=== PATIENT | male | born 1990 | race Caucasian/White ===

== ENCOUNTER 2020-02-24 14:39 | Emergency (ER) | payer OTHER ==
[2020-02-24 14:42] VITALS: BP 137/80; PULSE 79; RESP 18; TEMP 98.5
[2020-02-24] MEDS ORDERED: ONDANSETRON 4 MG ODT STARTER PACK 2 TAB BTL PO STA (15:34)
--- NOTE | 2020-02-24 15:35 | ED ---
Abdominal Pain HPI - General Chief Complaint: Abdominal Pain Stated Complaint: Abdominal Pain Source: patient Mode of arrival: ambulatory Limitations: no limitations - History of Present Illness Initial Comments: Patient is a 29-year-old male with no past medical history presents emergency room with reported nausea and vomiting this morning. Patient states that he woke this morning when he had a sharp shooting pain in the left side of his abdomen. Within 10 minutes he had an episode of vomiting. States that he did eat some food that was not prepared at home yesterday. He was concerned that he may have contracted food poisoning. Patient has been able to eat and drink water all day. Denies having any diarrhea, melenic stools or hematochezia. No sick contacts with similar symptoms. No fevers or chills. Patient states that the abd pain was short-lived and has fully resolved. Did not take any medications for his symptoms. States that he was going to go back and work tomorrow however his boss told him he needed a note. Patient presents stating that he "only needs a work note". - Related Data Previous Rx's Medication Instructions Recorded Lidocaine Viscous [Xylocaine 5 ml PO TID PRN 5 Days ml 11/29/15 Viscous 2%] Allergies Allergy/AdvReac Type Severity Reaction Status Date / Time Penicillins Allergy Rash/Hives Verified 02/24/20 14:42 Review of Systems ROS Statement: Those systems with pertinent positive or pertinent negative responses have been documented in the HPI. ROS Other: All systems not noted in ROS Statement are negative. Past Medical History Past Medical History: No Reported History History of Any Multi-Drug Resistant Organisms: None Reported Past Surgical History: No Surgical Hx Reported Past Psychological History: No Psychological Hx Reported Smoking Status: Current some day smoker Past Alcohol Use History: Rare Past Drug Use History: Marijuana General Exam Limitations: no limitations Course Vital Signs 02/24/20 14:40 Temperature 98.5 F Pulse Rate 79 Respiratory 18 Rate Blood Pressure 137/80 O2 Sat by Pulse 100 Oximetry Medical Decision Making - Medical Decision Making Upon arrival the patient is placed into room 28. Thorough history and physical exam was performed. Patient is pain-free at this time. He is able to eat and drink and hold food down. Patient is requesting a work note only. Physical exam demonstrates no acute findings. Patient has no pain with palpation of his abdomen. Patient is offered uTestfran starter pack for which she does agree to. Patient is follow-up with his primary care doctor within 2-4 days. He did provide him with her no. Patient has any new or worsening symptoms or has recurrence of his symptoms he should return to the emergency room. Patient was discharged home in stable condition Disposition Clinical Impression: Vomiting Disposition: HOME SELF-CARE Condition: Stable Instructions (If sedation given, give patient instructions): Acute Nausea and Vomiting (ED) Additional Instructions: Please follow up with your PCP. Return to the ED for any new or worsening symptoms. Is patient prescribed a controlled substance at d/c from ED?: No Referrals: None,Stated [Primary Care Provider] - 1-2 days Time of Disposition: 15:35
== END 2020-02-24 15:43 | disposition home or self-care (01) ==
LOC: EC 14:39
DX: R11.10 Vomiting, unspecified (principal); R10.9 Unspecified abdominal pain; F17.200 Nicotine dependence, unspecified, uncomplicated; Z88.0 Allergy status to penicillin
CPT/HCPCS: 99283; S0119